=== PATIENT | male | born 2005 | race Caucasian/White ===

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

== ENCOUNTER 2024-10-10 16:19 | Emergency (ER) | payer SELFPAY ==
[2024-10-10] VITALS (7 sets, daily range): BP systolic 132–156; BP diastolic 67–96; PULSE 67–84; RESP 16; TEMP 36.8; O2SAT 96–99; BMI 23.9
--- NOTE | 2024-10-10 16:27 | ECG_ITS ---
APPROVED REPORT Exam: Resting ECG HR:72 bpm ECG Measurements Heart Rate 72 AXES OH 159 P 63 QRSd 95 QRS 102 QT 340 T 51 QTc 365 Conclusion SINUS RHYTHM RIGHT AXIS DEVIATION [QRS AXIS > 100] EARLY REPOLARIZATION [ST ELEVATION WITH NORMALLY INFLECTED T-WAVE] No STEMI Electronically signed by : TESSIE MARTINEZ, 10/11/2024 03:03:22
[2024-10-10 16:34] LABS: POC Glucose,Bedside 105 (70-110)
--- NOTE | 2024-10-10 16:57 | ED_ITS ---
<Statement entered by Dara Pagan MD - 10/10/24 23:21> I was consulted by the GAYE, and we discussed the complexity of the problems being addressed. I approved the treatment and management plan for this patient's care in the emergency department, thus performing a substantive portion of the medical decision making. Dara Pagan MD, BOBBY, FACEP Discharge Plan Disposition Patient Disposition: Home, Self-Care Condition: Good Referrals Follow up/Referrals: Lucio Salas II, MD [Staff Physician, Gastroenterology] - See instructions Provider,MD Xiomara [Primary Care Provider, Medical] - See instructions Krunal Hunter MD [Staff Physician, Cardiology] - See instructions Activity Restrictions/Add. Instructions Additional Instructions/Restrictions: As we discussed I have referred you to both cardiology and gastroenterology. Please call on Saturday to schedule your appointment. If you do not have a primary care physician please establish 1 to coordinate your outpatient BERNARD. If you have any persistent new or worsening signs or symptoms follow-up with your PCP or return to the ER as needed. Clinical Impressions Clinical Impression: Chest pain Qualifiers: Chest pain type: unspecified Qualified Code(s): R07.9 - Chest pain, unspecified Stand Alone Forms Stand Alone Forms: Work/School Release Instructions Patient Instructions: DI for Chest Pain Print Language Print Language: Tamazight Discharge ED Provider: Dara Pagan General Adult HPI General Chief complaint: Chest Pain Stated complaint: chest discomfort,passed out at work Time Seen by Provider: 10/10/24 16:57 History of Present Illness HPI narrative: Patient presents for evaluation of chest pain and syncope. Patient presents for evaluation after he developed chest pain yesterday morning and then had what he described as passing out several times . 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 Patient states that he was in his normal state of health when he got up and arrived to work but however shortly after arrival he began having chest pain. He felt unwell and was sitting down in attendance by other coworkers and reportedly passed out. He had several other episodes but ultimately was sent home and advised to follow-up. The patient reports that he then slept from from around 6:30 AM to 6 PM and when he woke he still had the chest pain. Describes chest pain in the left chest radiating down the left arm. He does not have a known past medical history of any medical problems and is on no home medications. He does drink caffeine but did not drink any that morning. He is never felt anxious. Currently denies fever chills hemoptysis hematochezia melena nausea vomiting diarrhea. The chest pain is still present in the left chest and has not abated since it arrived yesterday morning. Related Data Allergies Allergy/AdvReac Type Severity Reaction Status Date / Time No Known Allergies Allergy Verified 05/23/19 20:39 [facility] Disclaimer: The information contained in this section may have been updated after the patient was seen, as this information can be updated by other users. Surgical History (Updated 05/28/22 @ 11:57 by Amy Preston RN) History of tympanostomy tube placement Social History (Updated 05/28/22 @ 12:01 by Maria Isabel Foster APRN) Smoking Status: Current some day smoker alcohol intake: never current occupational status: student Travel in the last 8 weeks?: None Have you lived/traveled outside [place] in past 30 days?: No Contact w/someone who lives/traveled outside US past 30 days?: No Exposure to someone with infectious disease in past 14 days?: No Do you have a fever (greater than 100.4 F or 38 C)?: No Have you tested positive for COVID-19?: No Exposed to someone with COVID-19 in past 14 days?: No Do you have a sore throat?: No Do you have a cough?: No Do you have any weakness?: No Do you have any diarrhea?: No Are you experiencing any unusual bleeding?: No Do you have any muscle aches/pain?: No Do you have any abdominal pain?: No Are you experiencing loss of taste or smell?: No ROS Obtained: Yes Systems reviewed as appropriate & no additional complaints except as documented Physical Exam General General appearance: alert and in no apparent distress Respiratory Respiratory exam: Present normal lung sounds bilaterally Cardiovascular Cardiovascular exam: Present regular rate and +S2 Neurological Exam Neurological exam: Present alert and oriented X3 Medical Decision Making Medical Records Medical records reviewed: Yes I reviewed the patient's medical records. Screening: Per USPSTF and CDC recommendations, given the prevalence of disease in our region, it is our hospital?s policy to screen for HIV and viral Hepatitis for all patients aged 18 and over and those with ongoing risk factors. Jj Inquiry Pt receiving controlled substance: No Vital Signs: 10/10/24 16:27 10/10/24 17:08 10/10/24 17:15 Temperature 98.2 F 98.3 F Temperature Source Oral Oral Pulse Rate 74 70 Pulse Rate [Left] 68 Respiratory Rate 16 16 Blood Pressure 156/93 H 151/86 H Blood Pressure [Right Arm] 151/86 H Blood Pressure Mean [Right Arm] 107 Blood Pressure Source Blood Pressure Source [Right Arm] Automatic Cuff Blood Pressure Position Blood Pressure Position [Right Arm] Sitting 02 Sat by Pulse Oximetry 97 99 97 Oxygen Delivery Method Room Air Room Air 10/10/24 17:30 10/10/24 18:00 10/10/24 18:30 Temperature Temperature Source Pulse Rate 71 67 74 Pulse Rate [Left] Respiratory Rate Blood Pressure 137/96 H 137/90 132/87 Blood Pressure [Right Arm] Blood Pressure Mean [Right Arm] Blood Pressure Source Blood Pressure Source [Right Arm] Blood Pressure Position Blood Pressure Position [Right Arm] 02 Sat by Pulse Oximetry 98 96 98 Oxygen Delivery Method Room Air Room Air 10/10/24 18:50 Temperature 98.3 F Temperature Source Oral Pulse Rate 84 Pulse Rate [Left] Respiratory Rate 16 Blood Pressure 132/67 Blood Pressure [Right Arm] Blood Pressure Mean [Right Arm] Blood Pressure Source Automatic Cuff Blood Pressure Source [Right Arm] Blood Pressure Position Sitting Blood Pressure Position [Right Arm] 02 Sat by Pulse Oximetry Oxygen Delivery Method Room Air Lab Data Lab results reviewed: Yes I reviewed the patient's lab results. Lab Results 10/10/24 16:28: POC Glucose 105 10/10/24 17:07: VBG pH 7.34, VBG pCO2 46.0, VBG pO2 48.5 H, VBG HCO3 24.3, VBG Total CO2 25.7, VBG O2 Saturation 83.2 H, VBG Base Excess -1.5, VBG Lactic Acid 1.3 10/10/24 17:10: WBC 8.1, RBC 5.60, Hgb 16.2, Hct 46.7, MCV 83.4, MCH 28.9, MCHC 34.7, RDW 11.9, Plt Count 235, MPV 9.4, Neut % (Auto) 63.1, Lymph % (Auto) 24.8, [place] % (Auto) 9.4 H, Eos % (Auto) 1.2, Baso % (Auto) 0.5, Neut # (Auto) 5.1, Lymph # (Auto) 2.0, [place] # (Auto) 0.8, Eos # (Auto) 0.1, Baso # (Auto) 0.0, PT 11.4, INR 1.03, D-Dimer 0.35, Sodium 137, Potassium 4.1, Chloride 103, Carbon Dioxide 28, Anion Gap 10.1, BUN 13, Creatinine 0.80, Estimated Creat Clear 127, Estimated GFR 122, Est GFR ( Amer) 148, Glucose 95, Calcium 9.2, Magnesium 1.7, Total Bilirubin 1.3, AST 26, ALT 24, Alkaline Phosphatase 63, Troponin I < 0.01, C-Reactive Protein 0.8, NT-Pro-B Natriuret Pep 51.5, Total Protein 7.4, Albumin 4.8, Globulin 2.6, Albumin/Globulin Ratio 1.8, Lipase 476 H , Procalcitonin 0.033, TSH 1.98, Free T4 Index 2.7 L, Thyroxine (T4) 8.3, T3 Uptake 32, HCV Ab JAYLEEN w/Rflx PCR Qn Negative, HIV Ag/Ab Combo Qual Negative 10/10/24 17:10 10/10/24 17:10 Orders (Tests/Meds): ED MEDICATIONS Discontinued Medications Generic Name Dose Route Start Last Admin Trade Name Freq PRN Reason Stop Dose Admin Acetaminophen 1,000 mg 10/10/24 17:06 10/10/24 17:21 Acetaminophen 500mg Tab PO 10/10/24 17:07 1,000 mg ONCE ONE Administration Belladonna Alkaloids 60 ml 10/10/24 17:06 10/10/24 17:19 Belladonna Alkaloids 60 Ml Ml PO 10/10/24 17:07 60 ml ONCE ONE Administration Ketorolac Tromethamine 15 mg 10/10/24 17:06 10/10/24 17:20 Ketorolac 30mg/Ml Vial IV 10/10/24 17:07 15 mg ONCE ONE Administration ORDERS Category Date Time Status Chest XR 2 view (NOT portable) [XR chest 2V] Stat Exams 10/10/24 17:07 Completed BNP [NT Pro Brain Natriuretic Pep.] Stat Lab 10/10/24 17:10 Completed CBC w/Auto Diff [Complete Blood Count Auto Diff] Stat Lab 10/10/24 17:10 Completed CMP [Comprehensive Metabolic Panel] Stat Lab 10/10/24 17:10 Completed CRP [C-Reactive Protein] Stat Lab 10/10/24 17:10 Completed D-Dimer Stat Lab 10/10/24 17:10 Completed HIV Combo Stat Lab 10/10/24 17:10 Completed Hepatitis C Ab Qual. W/ RFX Stat Lab 10/10/24 17:10 Completed INR [Prothrombin Time INR] Stat Lab 10/10/24 17:10 Completed Lipase Stat Lab 10/10/24 17:10 Completed Magnesium Stat Lab 10/10/24 17:10 Completed POC Glucose,Bedside Routine Lab 10/10/24 16:28 Completed Procalcitonin Stat Lab 10/10/24 17:10 Completed Thyroid Panel Stat Lab 10/10/24 17:10 Completed Trop I [Troponin I] Stat Lab 10/10/24 17:10 Completed VBG [Venous Blood Gas] Stat RT 10/10/24 17:07 Completed HEART Score History (anamnesis): Slightly suspicious ECG: Normal Age: <45 years Risk factors: No known risk factors Troponin: </= normal limit HEART Score: 0 Medical Decision Narrative: In summary patient is a 19-year-old male who presents to the emergency department for evaluation of chest pain and syncope. Patient is hemodynamically stable with a blood pressure 156/93 heart rate 74 normal sinus rhythm in the bedside monitor breathing 16 times minute satting at 97% on room air upon arrival, afebrile at 98.2. Physical exam is remarkable for well-nourished well- developed 19-year-old male who currently is in no acute distress. Is no reproducible chest pain on palpation or exam, breath sounds clear and equal bilaterally to the bases without adventitious sounds cardiovascular's S1-S2 regular rate and rhythm without murmurs gallops rubs or thrills, abdomen soft nontender no rebound or guarding no rigidity. Bowel sounds normal active. Patient has no muscular or skeletal pain has full range of motion is neurovascularly intact. s. Differential diagnosis includes ACS versus PE versus arrhythmia versus psychogenic cause etc. Initial workup will be conducted with hematologic labs plain film chest x-ray twelve-lead EKG. Initial interventions include Toradol Tylenol and GI cocktail. Initial workup reviewed by me and patient's hematologic labs are nonactionable including undetectable troponin normal electrolytes and my informal interpretation of his plain film chest x-ray shows no acute intrathoracic problems prior to radiology read. Please see formal read for final interpretation. Twelve-lead EKG does not show evidence of acute coronary syndrome. Upon repeat evaluation patient reports that his chest pain has gone after initial intervention. Given this there remains diagnostic uncertainty as the cause of the patient's syncope and his chest pain however it is possible that he may have a GI cause. We have ruled out any serious or life- threatening condition today and given the length of time of his chest pain and undetectable troponin safely rule out acute ischemia with no EKG changes. Given this I have recommended the patient that he be seen by both cardiology and GI. To that end I have referred him both to cardiology and gastroenterology as well as for a PCP as he does not currently have one. Patient given strict return precautions and patient verbalized understanding and agreement. Critical Care Critical Care Time Critical Care Time: No
--- NOTE | 2024-10-10 17:07 | XR_ITS ---
PROCEDURE INFORMATION: Exam: XR Chest Exam date and time: 10/10/2024 5:12 PM Age: 19 years old Clinical indication: Pain; Shortness of breath; Other: Cp; Additional info: Chest pain TECHNIQUE: Imaging protocol: Radiologic exam of the chest. Views: 2 views. COMPARISON: No relevant prior studies available. FINDINGS: Lungs: Unremarkable. No consolidation. Pleural spaces: Unremarkable. No pleural effusion. No pneumothorax. Heart/Mediastinum: Unremarkable. No cardiomegaly. Bones/joints: Unremarkable. IMPRESSION: No acute findings.
[2024-10-10 17:18] LABS: Basophils % 0.5 % (0.1-2.0); Eosinophils # 0.1 Kmm3 (0.0-0.4); Eosinophils % 1.2 % (0.1-12.0); Hematocrit 46.7 % (42.0-52.0); Hemoglobin 16.2 g/dL (14.1-18.0); Immature Granulocytes # 0.08 10^3uL; Lymphocytes % 24.8 % (10-50); Mean Corpuscular HGB Conc 34.7 g/dL (31.8-35.4); Mean Corpuscular Hemoglobin 28.9 pg (27.0-31.2); Mean Corpuscular Volume 83.4 fl (80-94); Mean Platelet Volume 9.4 fl (7.4-10.4); Monocytes # 0.8 K/mm3 (0.1-1.0); Monocytes % 9.4 % (1.7-9.3); Neutrophils # 5.1 K/mm3 (1.8-7.8); Neutrophils % 63.1 % (37.0-80.0); Nucleated Red Blood Cells # 0 10^3/uL; Nucleated Red Blood Cells % 0 %; Platelet Count 235 K/mm3 (142-424); Red Cell Distribution Width 11.9 % (11.5-17.5); Red Cell Distribution Width-SD 36.3 fL; White Blood Count 8.1 K/mm3 (4.8-10.8)
[2024-10-10] MEDS: BELLADONNA ALKALOIDS 60 ML ML PO (17:19)
[2024-10-10] MEDS: KETOROLAC 30MG/ML VIAL 15 MG IV (17:20)
[2024-10-10] MEDS: ACETAMINOPHEN 500MG TAB 1000 MG PO (17:21)
[2024-10-10 17:23] LABS: Lactate Venous 1.3 mmol/L (0.4-2.0); VBG Base Excess -1.5 mmol/L (-2.4-2.3); VBG HCO3 24.3 mmol/L (23-30); VBG Oxygen Saturation 83.2 % (50-70); VBG PH 7.34 mmol/L (7.31-7.41); VBG PO2 48.5 mmol/L (28-40); VBG Total CO2 25.7 mmol/L (23-27)
[2024-10-10 17:28] LABS: INR 1.03 (0.9-1.1); Prothrombin Time 11.4 seconds (10.1-12.5)
[2024-10-10 17:29] LABS: Alanine Aminotransferase 24 U/L (12-78); Albumin Level 4.8 g/dl (3.5-5.0); Albumin/Globulin Ratio 1.8 (1.1-1.8); Alkaline Phosphatase 63 U/L (38-126); Anion Gap 10.1 mEq/L (5-15); Aspartate Amino Transferase 26 U/L (17-59); Bilirubin,Total 1.3 mg/dl (0.2-1.3); Blood Urea Nitrogen 13 mg/dl (9-20); Calcium 9.2 mg/dl (8.4-10.2); Carbon Dioxide 28 mmol/L (22.0-30.0); Chloride 103 mmol/L (98-107); Creatinine Clearance Estimated 127 mL/min (50-200); Estimated Glomerular Filt Rate 122 ml/min (>60); GFR (African American) 148 ML/MIN (>60); Globulin 2.6 g/dL (1.3-3.2); Glucose 95 mg/dl (74-100); Lipase 476 U/L (23-300); Magnesium 1.7 mg/dl (1.6-2.3); Potassium 4.1 mmoL/L (3.5-5.1); Sodium 137 mmol/L (136-145); Total Protein,Serum 7.4 g/dl (6.3-8.2)
[2024-10-10 17:34] LABS: C-Reactive Protein 0.8 mg/L (0-4)
[2024-10-10 17:35] LABS: D-Dimer 0.35 ug/mL (0.0-0.5)
[2024-10-10 17:44] LABS: NT Pro Brain Natriuretic Pep. 51.5 pg/mL (0-125)
[2024-10-10 17:47] LABS: Troponin I < 0.01 ng/ml (0.00-0.034)
[2024-10-10 17:50] LABS: Free Thyroxine Index 2.7 ug/dL (5.93-13.13); Procalcitonin 0.033 ng/mL (0.0-2.0); T4 (Thyroxine) 8.3 ug/dl (5.53-11.0); Triiodothryronine (T3) Uptake 32 % (23.5-40.5)
[2024-10-10 18:03] LABS: Thyroid Stimulating Hormone 1.98 uIU/mL (0.465-4.68)
[2024-10-10 18:20] LABS: HIV Combo NEGATIVE (Negative)
[2024-10-10 18:27] LABS: Hepatitis C Ab Qual. W/ RFX NEGATIVE (Negative)
== END 2024-10-10 18:59 | disposition home or self-care (01) ==
PROVIDERS: Physician Assistant; Emergency Provider Student in an Organized Health Care Education/Training Program
DX: R07.9 Chest pain, unspecified (principal); R55 Syncope and collapse; F17.210 Nicotine dependence, cigarettes, uncomplicated; Z11.59 Encounter for screening for other viral diseases; Z11.4 Encounter for screening for human immunodeficiency virus [HIV]
CPT/HCPCS: 71046; 80053; 82803; 82962; 83690; 83735; 83880; 84145; 84436; 84443; 84479; 84484; 85025; 85378; 85610; 86140; 86803; 87389; 93005; 96374; 99285; J1885